=== PATIENT | female | born 1960 | race Caucasian/White ===

== ENCOUNTER 2018-09-02 22:58 | Emergency (ER) | payer SELFPAY ==
[2018-09-02 23:15] VITALS: BP 166/82; PULSE 84; TEMP 98.3; BMI 35.7
--- NOTE | 2018-09-03 00:32 | PDOC ---
History of Present Illness - General Chief Complaint: Blood Sugar Problem Stated Complaint: DIABETIC Time Seen by Provider: 09/03/18 00:32 - History of Present Illness Initial Comments: 09/03/18 01:31 The patient is a 58 year old female with a history of HTN, HLD, DM who presents for evaluation of elevated blood sugar. The patient is accompanied by family who assist in providing the history. They note that the patient checked her blood sugar tonight and it was elevated to 290 prompting her presentation to the ED for further evaluation. She states that she felt "flushed" but otherwise denies fevers, chills, SOB, chest pain, nausea, vomiting, abdominal pain, or changes with urination or bowel movements. Past History - Past Medical History Allergies/Adverse Reactions: Allergies Allergy/AdvReac Type Severity Reaction Status Date / Time No Known Allergies Allergy Verified 09/03/18 01:29 Home Medications: Ambulatory Orders Metformin HCl [Glucophage] 1,000 mg PO BID 09/03/18 Rosuvastatin [Crestor -] 10 mg PO DAILY 09/03/18 Sitagliptin Phosphate [Januvia] 100 mg PO DAILY 09/03/18 COPD: No - Suicide/Smoking/Psychosocial Hx Smoking History: Unknown if ever smoked Hx Alcohol Use: No Drug/Substance Use Hx: No Review of Systems - Review of Systems Comments:: 09/03/18 01:34 Constitutional: No fevers, chills, fatigue, malaise HEENT: No Rhinorrhea, nasal congestion, visual changes Cardiovascular: No chest pain, syncope, palpitations, lightheadedness Respiratory: No Cough, SOB, Hemoptysis, Gastrointestinal: No Abdominal pain, Nausea, Vomiting, Constipation, Diarrhea, Melena Genitourinary: No Dysuria, Frequency, Urgency, Hesitancy, Hematuria, Flank pain Musculoskeletal: No Myalgia, arthralgia Skin: No rashes, itching, bruising, pallor Neurologic: No Headache, Dizziness, Numbness, Weakness, or Tingling Psychiatric: No Hallucinations. No SI or HI *Physical Exam - Vital Signs Last Vital Signs Temp Pulse Resp BP Pulse Ox 98.3 F 84 20 166/82 97 09/02/18 23:08 09/02/18 23:08 09/02/18 23:08 09/02/18 23:08 09/02/18 23:08 - Physical Exam Comments: 09/03/18 01:34 General Appearance: Nourished. No Apparent Distress HEENT: No Pharyngeal Erythema, Tonsillar Exudate, Tonsillar Erythema Neck: No Cervical Lymphadenopathy Respiratory/Chest: Lungs Clear, Normal Breath Sounds. No Crackles, Rales, Rhonchi, Wheezing Cardiovascular: Regular Rhythm, Regular Rate. No Murmur, Gallops, Rubs Gastrointestinal/Abdominal: Normal Bowel Sounds, Soft. No Guarding, Rebound, Tenderness Musculoskeletal: No CVA Tenderness Extremity: Normal Capillary Refill Integumentary: Normal Color, Dry, Warm Neurologic: Fully Oriented, Alert, Normal Mood/Affect, Normal Response, Heart Score/ECG Review #1 ECG reviewed & interpreted by me at: 06:05 09/03/18 06:05 HR 66 MD 148 QRS 92 QTc 444 Normal Sinus Rhythm No Acute ST Changes ED Treatment Course - LABORATORY CBC & Chemistry Diagram: 09/03/18 01:13 09/03/18 01:13 Medical Decision Making - Medical Decision Making 09/03/18 01:35 The patient is a 58 year old female with a history of HTN, HLD, DM who presents for evaluation of elevated blood sugar. Given the patient's history and physical exam, we will obtain a cbc, cmp, vbg, troponin, acetone, ekg to evaluate further. We will treat with iv fluids and continue to monitor and reassess while here in the ED. 09/03/18 06:04 CBC, cmp, vbg, troponin, acetone are unremarkable. The patient was reassessed and reports improvement in their symptoms. We are comfortable discharging the patient home in stable condition. Patient and family made aware of impression and plan, return precautions discussed including but not limited to worsening pain or symptoms, fevers, or signs of infection, chest pain, respiratory distress, inability to tolerate oral intake, dehydration, syncope, or neurologic changes. The patient is to follow up with PMD as recommended within 1 week, follow up information provided and the patient will call for an appointment. The patient is to take medications as instructed for duration of time and continue with supportive care, avoid triggers and precipitants. Patient is safe for outpatient follow-up. *DC/Admit/Observation/Transfer Diagnosis at time of Disposition: High blood sugar - Discharge Dispostion Disposition: HOME Condition at time of disposition: Stable - Referrals - Patient Instructions Printed Discharge Instructions: DI for Hyperglycemia -- Adult Additional Instructions: 1) Please follow-up with your primary care doctor in the next 2-3 days. Please call tomorrow to schedule a follow up appointment. If you cannot follow up with your doctor within 1 week please return to the Emergency Department for any urgent issues. 2) Your laboratory results were normal here in the ER. 3) If you have any worsening of symptoms or any other concerns please return to the ER immediately. Return if worsening symptoms including fevers, headache, vomiting, visual or hearing disturbances, abdominal pain, chest pain, shortness of breath, syncope, dehydration, inability to take things by mouth/vomiting, altered mental status, or worsening concerning symptoms. 4) Please continue taking your home medications as directed. Side effects may include upset stomach, abdominal pain, vomiting, or diarrhea. Do not drink alcohol with your medications. - Post Discharge Activity
--- NOTE | 2018-09-03 00:41 | PDOC ---
Attending Attestation - Resident Resident Name: Bienvenido Carsonel - ED Attending Attestation I have performed the following: I have examined & evaluated the patient, The case was reviewed & discussed with the resident, I agree w/resident's findings & plan - HPI HPI: 09/03/18 02:42 58-year-old female here for evaluation after finding her home blood sugar to be elevated. There are no associated pain complaints or fever. - Physicial Exam PE: agree with resident exam - Medical Decision Making 09/03/18 02:53 09/03/18 02:42 58-year-old female with elevated blood sugar Labs were reviewed, aside from elevated blood sugar levels they were not concerning Patient is feeling better and José with discharge home She will follow with her primary care physician in regards to better glucose control 09/03/18 02:52
[2018-09-03] MEDS ORDERED: SODIUM CHLORIDE 1,000 ML IV STA (00:47)
[2018-09-03 01:38] LABS: VENOUS PC02 37.2 mmHg (41-51); VENOUS PH 7.44 (7.31-7.41); VENOUS PO2 57.1 mmHg (30-40)
[2018-09-03 01:49] LABS: ALBUMIN 3.9 g/dl (3.4-5.0); ALK PHOS 69 U/L (45-117); ANION GAP 8 MMOL/L (8-16); BILIRUBIN,TOTAL 0.5 mg/dL (0.2-1); CALCIUM 9.3 mg/dL (8.5-10.1); CHLORIDE 103 mmol/L (98-107); CO2 26 mmol/L (21-32); CREATININE 0.8 mg/dL (0.55-1.3); GLUCOSE,RANDOM 211 mg/dL (74-106); POTASSIUM 4.5 mmol/L (3.5-5.1); SGOT/AST 33 U/L (15-37); SGPT/ALT 27 U/L (13-61); SODIUM 136 mmol/L (136-145); TOT PROT 7.8 g/dl (6.4-8.2)
[2018-09-03 01:51] LABS: ACETONE SERUM NEGATIVE (NEGATIVE)
[2018-09-03 02:21] LABS: BASO % 0.9 % (0-2.0); EOS % 2.3 % (0-4.5); HEMATOCRIT 39.1 % (32.4-45.2); HEMOGLOBIN 13.1 GM/dL (10.7-15.3); MCH 26.2 pg (25.7-33.7); MCHC 33.6 g/dl (32.0-36.0); MEAN PLT VOLUME 9.2 fl (7.5-11.1); MONO % 5.8 % (3.8-10.2); PLATELET COUNT 288 K/MM3 (134-434); RBC 5.02 M/mm3 (3.60-5.2); RDW 15.5 % (11.6-15.6); WHITE BLOOD COUNT 7.9 K/mm3 (4.0-10.0)
--- NOTE | 2018-09-03 14:33 | EKG ---
Test Reason : Blood Pressure : / mmHG Vent. Rate : 066 BPM Atrial Rate : 066 BPM P-R Int : 150 ms QRS Dur : 086 ms QT Int : 422 ms P-R-T Axes : 032 -08 073 degrees QTc Int : 442 ms NORMAL SINUS RHYTHM MINIMAL VOLTAGE CRITERIA FOR LVH, MAY BE NORMAL VARIANT BORDERLINE ECG NO PREVIOUS ECGS AVAILABLE Confirmed by Mo Knig ([id number]) on 09/03/2018 2:33:13 PM Referred By: Confirmed By:Mo King
== END 2018-09-03 03:32 | disposition home or self-care (01) ==
LOC: JER 22:58
PROC: 3E0337Z Introduction of Electrolytic and Water Balance Substance into Peripheral Vein, Percutaneous Approach (ICD-10-PCS; principal; 2018-09-02)
DX: E11.65 Type 2 diabetes mellitus with hyperglycemia (principal); Z79.84 Long term (current) use of oral hypoglycemic drugs; I10 Essential (primary) hypertension; E78.5 Hyperlipidemia, unspecified
CPT/HCPCS: 36415; 80053; 82009; 82550; 82803; 82962; 84484; 85025; 93005; 93010; 96360; 99282-25; J7030